=== PATIENT | female | born 1985 | race Caucasian/White ===

== ENCOUNTER → 2019-11-05 | Outpatient (CLI) | payer BC ==
--- NOTE | 2019-11-05 12:44 | CONS ---
CONSULTATION DATE OF SERVICE: 11/05/2019 This 34-year-old lady had been evaluated in the sleep center for problems with falling asleep, discomfort in her legs while falling asleep and during the night. HISTORY OF PRESENT ILLNESS/SLEEP-WAKE EVALUATION: Patient's usual sleep schedule from 9 - 10 p.m. until 6:15 a.m. on working days and from 11:30 p.m. 10 a.m. on weekends. She cannot fall asleep without medications. She already tried on multiple medications in the past. Presently, she takes Xanax 0.5 mg at bedtime for anxiety and difficulties to fall asleep. She has TV set in bedroom, usually sleeps on the side position. The patient does not snore. In the morning, she wakes up tired, has difficulties to pay attention, worries about his sleep, has problems with concentration, irritability, depression and anxiety. [place] Sleepiness Scale is 5. PAST MEDICAL HISTORY: Positive for anxiety, hypertension. PAST SURGICAL HISTORY: Resection of the left side of thyroid gland at age of 12 for nodule. MEDICATIONS: Xanax, atenolol, melatonin. SOCIAL HISTORY: Positive for smoking one pack a day for about 8 years. Alcohol consumption none. FAMILY HISTORY: Hypertension, fibromyalgia, arthritis, insomnia, restless legs. REVIEW OF SYSTEMS: Difficulties to initiate sleep. Discomfort in the legs. Significant amount of movement during the night. Normal regular menstrual periods. PHYSICAL EXAMINATION: During physical exam, lady without distress. VITAL SIGNS: BP 130/86, HR 66, RR 16, height 5 feet, 5 inches, weight 135, BMI 22.4, temperature 97.9, oxygen saturation at room air 97%. HEENT: PERRLA, EOMI. Oropharynx low position of soft palate. Mallampati 3. Restriction of nasal breathing bilaterally. NECK: Thirteen inches in circumference. LUNGS: Clear to percussion and to auscultation. Good air exchange. No wheezing or rhonchi. HEART: S1, S2 regular. No murmurs, gallops, or rubs. ABDOMEN: Soft and nontender. Bowel sounds are present. No organomegaly appreciated. EXTREMITIES: No clubbing or cyanosis. ENGINEERING LECTURER: Awake, alert, and oriented X3. Cranial nerves 2 to 7 intact. There is no fasciculation or atrophy. noted. No focal deficits observed. IMPRESSION: 1. Discomfort in legs while falling asleep, significant amount of movements during the night, possible restless legs syndrome and periodic limb movements. 2. Anxiety. 3. Insomnia. 4. Low position of soft palate and some restriction of nasal breathing, rule out obstructive sleep apnea, although patient does not snore. 5. Hypertension. 6. Status post thyroid resection on the left side for nodule at the age of 12. PLAN: 1. Polysomnography for evaluation of patient's breathing during sleep. 2. CPAP/BiPAP titration if sleep study confirms obstructive sleep apnea-hypopnea syndrome. 3. Preferable position during sleep on the side. 4. No driving if patient feels any sleepiness. 5. I will see patient for follow up visit to explain results of testing and following plan. 6. Check iron profile including ferritin level, low level of iron may increase the risk for periodic limb movements. 7. I discussed with the patient psychological techniques for treatment of insomnia. Thank you very much for referring this patient for consultation. Sincerely, Bayron Savage MD, PhD, FAASM Diplomat of [place] [employer] [place] [employer] Panel Machine Operator [facility] MMODL / IJN: [id number] /
== END | disposition home or self-care (01) ==
LOC: SLEEP 11:05
PROVIDERS: ATTEND Internal Medicine
DX: G47.00 Insomnia, unspecified (principal); I10 Essential (primary) hypertension; E89.0 Postprocedural hypothyroidism; Z82.0 Family history of epilepsy and other diseases of the nervous system; F17.200 Nicotine dependence, unspecified, uncomplicated; Z79.899 Other long term (current) drug therapy
CPT/HCPCS: 99211